=== PATIENT | male | born 1945 | race Two or more races ===

== ENCOUNTER 2019-03-05 09:07 | Outpatient (CLI) | payer OTHER ==
[~2019-03-05 09:07] MED LIST: DIGOXIN PO; ENTRESTO 49 MG1 EACH PO; METOPROLOL SUC200 MG PO; PNEU16DI2; PREVASTATIN PO; SPIRINOLACTONE PO; XARELTO PO; [UNRECOGNIZED DRUG - OTHER] PO
== END 2019-03-05 13:56 | disposition home or self-care (01) ==
LOC: LAB 09:07
DX: D12.7 Benign neoplasm of rectosigmoid junction (principal); Z01.811 Encounter for preprocedural respiratory examination; R19.4 Change in bowel habit

== ENCOUNTER → 2019-03-11 | Day surgery (SDC) | payer OTHER | END | disposition home or self-care (01) | LOC: ADM 02-04 09:15 → AMB-ENDOS 02-11 09:15 | DX: K57.30 Diverticulosis of large intestine without perforation or abscess without bleeding (principal); K64.8 Other hemorrhoids ==